=== PATIENT | male | born 1940 | race Caucasian/White ===

== ENCOUNTER 2017-03-19 12:37 | Inpatient (IN) | payer MEDICARE, OTHER ==
--- NOTE | 2017-03-19 13:17 | ER Document Report ---
ED General - General Chief Complaint: Hip Injury Stated Complaint: HIP INJURY Time Seen by Provider: 03/19/17 12:41 Notes: Patient presents with left hip pain worse with movement unable to bear weight onset at 4 AM when he fell from standing. Patient has Parkinson's and neuropathy and has trouble getting around. No numbness or tingling or foot pain. No ankle or knee pain. TRAVEL OUTSIDE OF THE [place] IN LAST 30 DAYS: No - Related Data Allergies/Adverse Reactions: Penicillins Allergy (Verified 03/19/17 13:12) Home Medications: Current Home Medications Amantadine HCl [Amantadine] 100 mg PO BID 03/19/17 [History] Amantadine HCl [Amantadine] 100 mg PO Q6 03/19/17 [History] Carbidopa/Levodopa [Rytary ER 61.25 mg-245 mg Cap] 3 tab PO Q8 03/19/17 [History ] Carbidopa/Levodopa [Rytary ER 61.25 mg-245 mg Cap] 245 mg PO TID 03/19/17 [ History] Chlorthalidone [Chlorthalidone 25 mg Tablet] 25 mg PO Q8 03/19/17 [History] Chlorthalidone [Chlorthalidone] 25 mg PO DAILY 03/19/17 [History] Clonazepam [Klonopin] 0.5 mg PO QHS 03/19/17 [History] Felodipine [Felodipine ER] 5 mg PO DAILY 03/19/17 [History] Felodipine [Felodipine ER] 5 mg PO DAILY 03/19/17 [History] Fenofibrate 54 mg PO DAILY 03/19/17 [History] Fenofibrate Nanocrystallized [Tricor] 54 mg PO DAILY 03/19/17 [History] Metformin HCl [Metformin HCl ER] 1,000 mg PO DAILY 03/19/17 [History] Metformin HCl [Metformin HCl ER] 500 mg PO BID 03/19/17 [History] Metoprolol Tartrate [Lopressor 25 mg Tablet] 25 mg PO Q12 03/19/17 [History] Metoprolol Tartrate [Metoprolol Tartrate] 50 mg PO BID 03/19/17 [History] Naproxen 500 mg PO DAILY 03/19/17 [History] Naproxen [Naprosyn] 500 mg PO BID 03/19/17 [History] Pravastatin Sodium [Pravachol] 10 mg PO QHS 03/19/17 [History] Pravastatin Sodium [Pravastatin Sodium] 10 mg PO QHS 03/19/17 [History] Rotigotine [Neupro] 4 mg PO DAILY 03/19/17 [History] Rotigotine [Neupro] 4 mg TD DAILY 03/19/17 [History] Telmisartan [Micardis 80 mg Tablet] 80 mg PO DAILY 03/19/17 [History] Telmisartan [Micardis] 80 mg PO DAILY 03/19/17 [History] Ubidecarenone [Co Q-10] 200 mg PO DAILY 03/19/17 [History] Zolpidem Tartrate 5 mg PO QHS PRN 03/19/17 [History] Past Medical History - Social History Smoking Status: Never Smoker Frequency of alcohol use: None Drug Abuse: None Family History: None Patient has suicidal ideation: No Patient has homicidal ideation: No - Past Medical History Cardiac Medical History: Reports: Hx Hypercholesterolemia, Hx Hypertension Endocrine Medical History: Reports: Hx Diabetes Mellitus Type 2 Renal/ Medical History: Denies: Hx Peritoneal Dialysis Review of Systems - Review of Systems Notes: REVIEW OF SYSTEMS GEN: Denies fever, chills, weight loss ENT: Denies sore throat, nasal discharge, ear pain EYES: Denies blurry vision, eye pain, discharge CV: Denies chest pain, palpitations, edema RESP: Denies cough, shortness of breath, wheezing GI: Denies abdominal pain, nausea, vomiting, diarrhea MSK: D left hip pain, SKIN: Denies rash, skin lesions LYMPH: Denies swollen glands/lymph nodes NEURO: Chronic tremor and gait instability PSYCH: Denies depression, suicidal or homicidal ideation PHYSICAL EXAMINATION General: No acute distress, well-nourished Head: Atraumatic, normocephalic ENT: Mouth normal, oropharynx moist, no exudates or tonsillar enlargement Eyes: Conjunctiva normal, pupils equal, lids normal Neck: No JVD, supple, no guarding CVS: Normal rate, regular rhythm, no murmurs Resp: No resp distress, equal and normal breath sounds bilaterally GI: Nondistended, soft, no tenderness to palpation, no rebound or guarding Ext: Pain and tenderness in the left groin and lateral hip, slightly shortened left hip with external rotation. Good motion in other joints no tenderness of the ankle or knee. Back: No CVA or midline TTP Skin: No rash, warm Lymphatic: No lymphadeopathy noted Neuro: Awake, alert. Face symmetric. Baseline tremor and stutter. Normal sensation left foot. GCS 15. Physical Exam - Vital signs Vitals: Temp Pulse Resp BP Pulse Ox 97.9 F 78 16 142/66 H 99 03/19/17 12:43 03/19/17 12:43 03/19/17 12:43 03/19/17 12:43 03/19/17 12:43 Course - Re-evaluation Re-evalutation: 03/19/17 13:16 Parkinson's patient with multiple medical problems presents with mechanical fall and left hip deformity. Neurovascularly intact. Hip and pelvis x-ray show a displaced femoral neck fracture. Ordered laboratory testing EKG and chest x-ray for preoperative workup. Consulted with Dr. Osman who will consult on the patient and operate. Admitted to Dr. Viramontes who accepted. 03/19/17 16:28 Preop workup is essentially normal. Anemia noted. 03/19/17 16:28 - Vital Signs Vital signs: Temp Pulse Resp BP Pulse Ox 97.9 F 78 24 H 154/62 H 97 03/19/17 12:43 03/19/17 12:43 03/19/17 16:01 03/19/17 16:01 03/19/17 16:01 - Laboratory Result Diagrams: 03/19/17 12:56 Laboratory results interpreted by me: 03/19/17 03/19/17 12:56 13:40 WBC 13.8 H RBC 2.71 L Hgb 8.4 L Hct 25.2 L Seg Neutrophils % 88.1 H Lymphocytes % 5.8 L Absolute Neutrophils 12.1 H Crossmatch See Detail - Diagnostic Test Radiology reviewed: Image reviewed, Reports reviewed Discharge - Discharge Clinical Impression: Fracture of hip, left, closed Qualifiers: Encounter type: initial encounter Qualified Code(s): S72.002A - Fracture of unspecified part of neck of left femur, initial encounter for closed fracture Condition: Good Disposition: ADMITTED INPATIENT Admitting Provider: Hospitalist Unit Admitted: Medical Floor
[2017-03-19 13:28] LABS: ABSOLUTE BASOPHILS # (AUTO) 0.1 10^3/uL (0.0-0.2); ABSOLUTE EOSINOPHILS # (AUTO) 0.1 10^3/uL (0.0-0.6); ABSOLUTE LYMPHOCYTES (AUTO) 0.8 10^3/uL (0.5-4.7); ABSOLUTE MONOCYTES (AUTO) 0.7 10^3/uL (0.1-1.4); ABSOLUTE NEUT (AUTO) 12.1 10^3/uL (1.7-8.2); BASOPHILS % (AUTO) 0.5 % (0-2); EOSINOPHILS % (AUTO) 0.4 % (0-6); HEMATOCRIT 25.2 % (37.9-51.0); HEMOGLOBIN 8.4 g/dL (13.5-17.0); LYMPHOCYTES % (AUTO) 5.8 % (13-45); MEAN CORPUSCULAR HEMOGLOBIN 31.2 pg (27.0-33.4); MEAN CORPUSCULAR HGB CONC 33.5 g/dL (32.0-36.0); MEAN CORPUSCULAR VOLUME 93 fl (80-97); MONOCYTES % (AUTO) 5.2 % (3-13); RED BLOOD COUNT 2.71 10^6/uL (4.35-5.55); SEGMENTED NEUTROPHILS % (AUTO) 88.1 % (42-78); WHITE BLOOD COUNT 13.8 10^3/uL (4.0-10.5)
--- NOTE | 2017-03-19 13:52 | RADIOLOGY REPORT (SQ) ---
EXAM DESCRIPTION: CHEST SINGLE VIEW COMPLETED DATE/TIME: 03/19/2017 1:34 pm REASON FOR STUDY: hi pfx COMPARISON: None. EXAM PARAMETERS: NUMBER OF VIEWS: One view. TECHNIQUE: Single frontal radiographic view of the chest acquired. RADIATION DOSE: NA LIMITATIONS: None. FINDINGS: LUNGS AND PLEURA: No opacities, masses or pneumothorax. No pleural effusion. MEDIASTINUM AND HILAR STRUCTURES: No masses. Contour normal. HEART AND VASCULAR STRUCTURES: Heart normal in size. Normal vasculature. BONES: No acute findings. HARDWARE: None in the chest. OTHER: No other significant finding. IMPRESSION: NO ACUTE RADIOGRAPHIC FINDING IN THE CHEST. TECHNICAL DOCUMENTATION: JOB ID: [id number] [employer]- All Rights Reserved
--- NOTE | 2017-03-19 13:52 | RADIOLOGY REPORT (SQ) ---
EXAM DESCRIPTION: PELVIS AP COMPLETED DATE/TIME: 03/19/2017 1:34 pm REASON FOR STUDY: BED 1 FALL +DEFORMITY TENDERNESS COMPARISON: None. NUMBER OF VIEWS: One view TECHNIQUE: AP Pelvis LIMITATIONS: None. FINDINGS: MINERALIZATION: Normal. HIPS: Fracture of the left femoral neck. Severe degenerative changes in the left hip with joint spac e loss, sclerosis, subchondral cysts, and osteophytes. Degenerative changes in the right hip, althou gh less severe. Limited visualization of the right femoral neck. PELVIS AND SACRUM: No acute fracture or dislocation. No worrisome bone lesions. PUBIS AND ISCHIUM: No acute fracture. LOWER LUMBAR SPINE: No significant findings as visualized. SOFT TISSUES: No findings. OTHER: No other significant finding. IMPRESSION: DEGENERATIVE CHANGES IN BOTH HIPS, WORSE ON THE LEFT. FRACTURE OF THE LEFT FEMORAL NECK . TECHNICAL DOCUMENTATION: JOB ID: [id number] [employer]- All Rights Reserved
--- NOTE | 2017-03-19 13:53 | RADIOLOGY REPORT (SQ) ---
EXAM DESCRIPTION: FEMUR LEFT COMPLETED DATE/TIME: 03/19/2017 1:34 pm REASON FOR STUDY: hi pfx COMPARISON: None. NUMBER OF VIEWS: Two views. TECHNIQUE: Two radiographic images acquired of the left femur to include hip and knee in at least on e projection. LIMITATIONS: None. FINDINGS: MINERALIZATION: Normal. BONES: Fracture of the femoral neck. Otherwise intact. Severe degenerative changes in the hip. SOFT TISSUES: No obvious swelling or foreign body. OTHER: No other significant finding. IMPRESSION: FRACTURE OF THE FEMORAL NECK. SEVERE DEGENERATIVE CHANGES IN THE HIP. TECHNICAL DOCUMENTATION: JOB ID: [id number] [employer]- All Rights Reserved
[2017-03-19] MEDS ORDERED: ACETAMINOPHEN 325 MG TABLET PO PRN (14:34)
[2017-03-19] MEDS ORDERED: ONDANSETRON HCL INJ/PF 4 MG/2 ML SDV IV PRN (14:34)
[2017-03-19] MEDS ORDERED: DEXTROSE 50%-WATER 25 GM/50 ML DISP.SYRIN IV PRN ×2 (14:34)
[2017-03-19] MEDS ORDERED: ONDANSETRON 4 MG TAB.RAPDIS PO PRN (14:34)
[2017-03-19] MEDS ORDERED: DEXTROSE 40% GEL 15 GM TUBE PO PRN ×3 (14:34→14:45)
[2017-03-19] MEDS ORDERED: GLUCAGON,HUMAN RECOMB 1 MG INJ SUBCUT PRN (14:34)
[2017-03-19] MEDS ORDERED: MORPHINE SULFATE 10 MG/ML INJ IV PRN (14:45)
[2017-03-19] MEDS ORDERED: INSULIN LISPRO 100 UNIT/ML 3 ML VIAL SUBCUT PRN (14:45)
--- NOTE | 2017-03-19 14:47 | PDOC CONSULTATION ---
Consultation Consult Date: 03/19/17 Consult reason:: Left hip fracture History of Present Illness Admission Date/PCP: 03/19/17 14:00 History of Present Illness: LAURI MCDANIEL is a 76 year old male history of Parkinson's disease who slipped and fell sustaining a left hip injury today. He was unable to weight- bear. Is brought to the emergency room. A displaced left femoral neck fracture was identified. Orthopedics is consulted for fracture management. Past Medical History Cardiac Medical History: Reports: Hyperlipidema, Hypertension Endocrine Medical History: Reports: Diabetes Mellitus Type 2 Hematology: Reports: Anemia Social History Information Source: Patient, [facility] Records Lives with: Family Smoking Status: Never Smoker Family History Parental Family History Reviewed: No Children Family History Reviewed: No Sibling(s) Family History Reviewed.: No Medication/Allergy Home Medications: Amantadine HCl [Amantadine] 100 mg PO BID 03/19/17 Amantadine HCl [Amantadine] 100 mg PO Q6 03/19/17 Carbidopa/Levodopa [Rytary ER 61.25 mg-245 mg Cap] 3 tab PO Q8 03/19/17 Carbidopa/Levodopa [Rytary ER 61.25 mg-245 mg Cap] 245 mg PO TID 03/19/17 Chlorthalidone [Chlorthalidone 25 mg Tablet] 25 mg PO Q8 03/19/17 Chlorthalidone [Chlorthalidone] 25 mg PO DAILY 03/19/17 Clonazepam [Klonopin] 0.5 mg PO QHS 03/19/17 Felodipine [Felodipine ER] 5 mg PO DAILY 03/19/17 Felodipine [Felodipine ER] 5 mg PO DAILY 03/19/17 Fenofibrate 54 mg PO DAILY 03/19/17 Fenofibrate Nanocrystallized [Tricor] 54 mg PO DAILY 03/19/17 Metformin HCl [Metformin HCl ER] 1,000 mg PO DAILY 03/19/17 Metformin HCl [Metformin HCl ER] 500 mg PO BID 03/19/17 Metoprolol Tartrate [Lopressor 25 mg Tablet] 25 mg PO Q12 03/19/17 Metoprolol Tartrate [Metoprolol Tartrate] 50 mg PO BID 03/19/17 Naproxen 500 mg PO DAILY 03/19/17 Naproxen [Naprosyn] 500 mg PO BID 03/19/17 Pravastatin Sodium [Pravachol] 10 mg PO QHS 03/19/17 Pravastatin Sodium [Pravastatin Sodium] 10 mg PO QHS 03/19/17 Rotigotine [Neupro] 4 mg PO DAILY 03/19/17 Rotigotine [Neupro] 4 mg TD DAILY 03/19/17 Telmisartan [Micardis 80 mg Tablet] 80 mg PO DAILY 03/19/17 Telmisartan [Micardis] 80 mg PO DAILY 03/19/17 Ubidecarenone [Co Q-10] 200 mg PO DAILY 03/19/17 Zolpidem Tartrate 5 mg PO QHS PRN 03/19/17 Allergies/Adverse Reactions: Penicillins Allergy (Verified 03/19/17 13:12) Review of Systems ROS unobtainable: Due to mental status Physical Exam Vital Signs: Temp Pulse Resp BP Pulse Ox 36.6 C 78 16 142/66 H 99 03/19/17 12:43 03/19/17 12:43 03/19/17 12:43 03/19/17 12:43 03/19/17 12:43 General appearance: PRESENT: mild distress, thin Head exam: PRESENT: normocephalic Respiratory exam: PRESENT: unlabored Cardiovascular exam: PRESENT: RRR Pulses: PRESENT: +1 pedal pulses bilateral Vascular exam: PRESENT: normal capillary refill GI/Abdominal exam: PRESENT: soft Rectal exam: PRESENT: deferred Extremities exam: PRESENT: other - Left lower extremity is shortened and externally rotated. His pain associate with passive range of motion. Distal neurovascular examination is intact. Neurological exam: PRESENT: other - Stigmata of Parkinson's disease Psychiatric exam: PRESENT: appropriate affect, normal mood. ABSENT: homicidal ideation, suicidal ideation Skin exam: PRESENT: dry, intact, warm. ABSENT: cyanosis, rash Results Impressions: Pelvis X-Ray 03/19/17 00:00 IMPRESSION: DEGENERATIVE CHANGES IN BOTH HIPS, WORSE ON THE LEFT. FRACTURE OF THE LEFT FEMORAL NECK. Chest X-Ray 03/19/17 12:42 IMPRESSION: NO ACUTE RADIOGRAPHIC FINDING IN THE CHEST. Femur X-Ray 03/19/17 12:42 IMPRESSION: FRACTURE OF THE FEMORAL NECK. SEVERE DEGENERATIVE CHANGES IN THE HIP. Status: Imported from PACS Assessment & Plan - Diagnosis (1) Fracture of hip, left, closed Qualifiers: Encounter type: initial encounter Qualified Code(s): S72.002A - Fracture of unspecified part of neck of left femur, initial encounter for closed fracture Is this a current diagnosis for this admission?: Yes Plan: 76-year-old white male with Parkinson's disease and a displaced left femoral neck fracture and pre-existing severe osteoarthritis. With this constellation of clinical findings my recommendation is to proceed with a total hip arthroplasty as opposed to hemiarthroplasty. The patient's Parkinson's disease places him at greater risk for dislocation. In addition to dislocation we discussed infection, leg length inequality, neurovascular injury, and blood clot as potential complications. - Time Time Spent: 50 to 70 Minutes Anticipated discharge: Home with Homehealth Within: Other
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
[2017-03-19] MEDS ORDERED: NORMAL SALINE 250 ML IV PRN ×2 (15:26)
[2017-03-19] MEDS: NORMAL SALINE 1000 ML 1,000 ML IV PRN (15:29)
[2017-03-19] MEDS: OXYCODONE-ACETAMINOPHEN 5-325 MG TABLET PO PRN ×2 (15:53→22:54)
--- NOTE | 2017-03-19 20:50 | EKG REPORT ---
SEVERITY:- BORDERLINE ECG - SINUS RHYTHM BORDERLINE PROLONGED QT INTERVAL : Confirmed by: Pooja Navarrete 19-Mar-2017 20:49:00
[2017-03-19] MEDS: FAMOTIDINE 20 MG TABLET PO SCH (22:53)
[2017-03-20] MEDS ORDERED: VANCOMYCIN HCL 1,000 MG in DEXTROSE 5%-WATER 250 ML IV PRN (05:00)
[2017-03-20] MEDS ORDERED: TRANEXAMIC ACID INJ/PF 1,000 MG/10 ML SDV IV PRN (05:00)
[2017-03-20] MEDS: NORMAL SALINE 1000 ML 1,000 ML IV PRN ×2 (06:40→15:32)
[2017-03-20] MEDS: OXYCODONE-ACETAMINOPHEN 5-325 MG TABLET PO PRN (06:41)
[2017-03-20 07:27] LABS: HEMATOCRIT 30.3 % (37.9-51.0); HEMOGLOBIN 10.1 g/dL (13.5-17.0); MEAN CORPUSCULAR HEMOGLOBIN 30.1 pg (27.0-33.4); MEAN CORPUSCULAR HGB CONC 33.4 g/dL (32.0-36.0); MEAN CORPUSCULAR VOLUME 90 fl (80-97); RED BLOOD COUNT 3.37 10^6/uL (4.35-5.55); RED CELL DISTRIBUTION WIDTH 15.1 % (11.5-14.0); WHITE BLOOD COUNT 12.4 10^3/uL (4.0-10.5)
[2017-03-20] MEDS ORDERED: PHENYLEPHRINE HCL INJ/PF 10 MG/1 ML SDV ONE (07:51)
[2017-03-20 07:56] LABS: ANION GAP 14 (5-19); BLOOD UREA NITROGEN 26 mg/dL (7-20); CALCIUM 9.3 mg/dL (8.4-10.2); CARBON DIOXIDE 22 mmol/L (22-30); CHLORIDE 105 mmol/L (98-107); CREATININE RESULT 1.27 mg/dL (0.52-1.25); GLUCOSE 130 mg/dL (75-110)
[2017-03-20] MEDS ORDERED: THROMBIN (BOVINE) TOPICAL 20000 UNIT VIAL ONE (08:01)
[2017-03-20] MEDS ORDERED: THROMBIN (BOVINE) 5000 UNIT EPITAXIS KIT ONE (08:01)
[2017-03-20] MEDS ORDERED: BUPIVACAINE INJ/PF LIPOSOME/PF 266 MG/20 ML SDV ONE (08:01)
[2017-03-20] MEDS ORDERED: LIDOCAINE 2% INJ-PF (20 MG/ML) 10 ML AMPUL ONE (08:08)
[2017-03-20] MEDS ORDERED: MIDAZOLAM 2 MG/2 ML INJ ONE (08:08)
[2017-03-20] MEDS ORDERED: PROPOFOL INJ 200 MG/20 ML VIAL IV ONE (08:08)
[2017-03-20] MEDS ORDERED: KETAMINE HCL INJ 500 MG/10 ML VIAL ONE (08:08)
[2017-03-20] MEDS ORDERED: HYDROMORPHONE HCL INJ/PF 2 MG/ML AMPULE ONE (08:09)
[2017-03-20] MEDS ORDERED: ACETAMINOPHEN 100 ML IV ONE ×2 (08:09→15:45)
[2017-03-20] MEDS ORDERED: TRANEXAMIC ACID INJ/PF 1,000 MG/10 ML SDV IV ONE ×3 (08:25→11:00)
[2017-03-20] MEDS ORDERED: FENTANYL CITRATE INJ/PF 100 MCG/2 ML AMPUL IV PRN ×3 (09:18)
[2017-03-20] MEDS ORDERED: ONDANSETRON HCL INJ/PF 4 MG/2 ML SDV IV PRN ×3 (09:18→21:13)
[2017-03-20] MEDS ORDERED: MEPERIDINE HCL/PF INJ 25 MG/1 ML DISP.SYRIN IV PRN (09:18)
[2017-03-20] MEDS ORDERED: DIPHENHYDRAMINE HCL 50 MG/ML VIAL IV PRN ×3 (09:18→21:06)
[2017-03-20] MEDS ORDERED: PROMETHAZINE HCL INJ 25 MG/1 ML VIAL IV PRN ×2 (09:18)
[2017-03-20] MEDS ORDERED: MORPHINE SULFATE 10 MG/ML INJ IV PRN ×6 (09:18→21:11)
[2017-03-20] MEDS ORDERED: OXYCODONE-ACETAMINOPHEN 5-325 MG TABLET PO PRN ×3 (09:18→21:15)
[2017-03-20] MEDS ORDERED: ZOLPIDEM TARTRATE 5 MG TABLET PO PRN ×3 (09:41→21:19)
--- NOTE | 2017-03-20 09:41 | Operative Report ---
Operative Report DATE OF SURGERY: 03/20/17 PREOPERATIVE DIAGNOSIS: Left femoral neck fracture with severe degenerative arthritis OPERATION: Left hip arthroplasty SURGEON: MATT TELLEZ ANESTHESIA: Spinal TISSUE REMOVED OR ALTERED: Femoral head to pathology ESTIMATED BLOOD LOSS: 100 PROCEDURE: Implants used: Femur: Weldon Accolade 2 stem size 7 Acetabular shell: 60 mm acetabular shell Liner: 36 mm cross-link polyethylene liner Head: 86 mm chrome cobalt head -5 extension The patient is placed in a right lateral decubitus position on the operating table. The left lower extremity and hindquarter is prepped and draped in a sterile fashion. A curvilinear incision was made over the greater trochanter a posterior approach the hip was taken. The femoral head is is removed with a corkscrew.. Attention was next turned to the acetabulum. Soft tissues cleared off the acetabulum using electrocautery. The acetabulum was then prepared using a series of hemispherical reamers until a 59 millimeters reamer is seated. Subsequently a 60 millimeters Mary titanium hemispherical shell is impacted into position and secured with one screw. A standard flat 36 millimeters cross- link liner is impacted into the shell. Attention was next turned to the femur. Access is gained to the femoral canal using a box osteotome to the piriformis fossa. The femur is then prepared using a series of broaches until a number 7 broach is seated. A trial reduction was now performed using a 36 millimeters head with -5 neck. Preoperative leg length was recreated and is excellent anterior posterior stability. A decision was made to proceed with the above construct. All trial implants were removed. The wound is irrigated with pulsed lavage. A number 7 stem is impacted into the femoral canal. A trial reduction was again performed with a 36 mm head and a -5 neck. Findings as previously. The hip was dislocated one last time and the final chrome-cobalt head is impacted onto the trunnion. The hip was reduced. Wound is copiously irrigated with pulsed lavage. Sent closed in layers using interrupted Vicryl followed by uma. A sterile dressing is applied and the patient's returned to recovery room in satisfactory patient.
[2017-03-20] MEDS ORDERED: ONDANSETRON 4 MG TAB.RAPDIS PO PRN ×2 (09:43→21:14)
[2017-03-20] MEDS ORDERED: MAG HYDROX/AL HYDROX/SIMETH SUSP 30 ML UDCUP PO PRN ×2 (09:43→21:08)
[2017-03-20] MEDS ORDERED: OXYCODONE HCL IR 5 MG TABLET PO PRN (09:43)
[2017-03-20] MEDS ORDERED: MORPHINE SULFATE 10 MG/ML INJ IM PRN (09:43)
[2017-03-20] MEDS ORDERED: RINGERS SOLUTION,LACTATED 1,000 ML IV PRN ×2 (09:43→21:18)
[2017-03-20] MEDS ORDERED: ACETAMINOPHEN 325 MG TABLET PO PRN ×2 (09:43→21:02)
[2017-03-20] MEDS ORDERED: (PENDING PHARMACY ID) (Metformin Hcl [Metformin Hcl Er] 500 MG) PO SCH (10:00)
[2017-03-20] MEDS ORDERED: FENOFIBRATE NANOCRYSTALLIZED 48 MG TABLET PO SCH (10:00)
[2017-03-20] MEDS ORDERED: ROTIGOTINE 4 MG TD SCH (10:00)
[2017-03-20] MEDS ORDERED: (PENDING PHARMACY ID) (Ubidecarenone [Co Q-10] 200 MG) PO SCH (10:00)
[2017-03-20] MEDS ORDERED: CARBIDOPA PO SCH ×3 (10:00→18:00)
[2017-03-20] MEDS ORDERED: AMANTADINE HCL 100 MG CAPSULE PO SCH (10:00)
[2017-03-20] MEDS ORDERED: (PENDING PHARMACY ID) (Metformin Hcl [Metformin Hcl Er] 1,000 MG) PO SCH (10:00)
[2017-03-20] MEDS ORDERED: LEVODOPA PO SCH ×3 (10:00→18:00)
[2017-03-20] MEDS ORDERED: (PENDING PHARMACY ID) (Fenofibrate [Fenofibrate] 54 MG) PO SCH (10:00)
[2017-03-20] MEDS ORDERED: ROTIGOTINE 4 MG PO SCH (10:00)
[2017-03-20] MEDS ORDERED: FELODIPINE 5 MG PO SCH ×2 (10:00)
[2017-03-20] MEDS ORDERED: CHLORTHALIDONE 25 MG TABLET PO SCH ×2 (10:00→14:00)
[2017-03-20] MEDS ORDERED: (PENDING PHARMACY ID) (Telmisartan [Micardis] 80 MG) PO SCH (10:00)
[2017-03-20] MEDS ORDERED: METOPROLOL TARTRATE 25 MG TABLET PO SCH ×2 (10:00→22:00)
[2017-03-20] MEDS ORDERED: (PENDING PHARMACY ID) (Telmisartan [Micardis 80 Mg Tablet] 80 MG) PO SCH (10:00)
--- NOTE | 2017-03-20 10:38 | RADIOLOGY REPORT (SQ) ---
EXAM DESCRIPTION: PELVIS AP COMPLETED DATE/TIME: 03/20/2017 10:23 am REASON FOR STUDY: Post Op Long Cassette in PACU COMPARISON: None. NUMBER OF VIEWS: One view TECHNIQUE: AP Pelvis LIMITATIONS: None. FINDINGS: Postoperative image of the pelvis and proximal femurs shows a left hip arthroplasty in goo d position. IMPRESSION: Left hip arthroplasty. TECHNICAL DOCUMENTATION: JOB ID: [id number] [employer]- All Rights Reserved
[2017-03-20] MEDS ORDERED: PRENATAL VITAMIN W DHA CAPSULE PO ONE (11:30)
[2017-03-20] MEDS ORDERED: METOPROLOL TARTRATE 25 MG TABLET PO ONE (11:30)
[2017-03-20] MEDS: FAMOTIDINE 20 MG TABLET PO SCH ×2 (11:46→22:12)
[2017-03-20] MEDS ORDERED: OXYCODONE HCL SR 10 MG TABLET PO ONE (12:00)
[2017-03-20] MEDS ORDERED: (PENDING PHARMACY ID) (Amantadine Hcl [Amantadine] 100 MG) PO SCH (12:00)
[2017-03-20] MEDS ORDERED: SENNOSIDES/DOCUSATE 8.6-50 MG 1 EACH TABLET PO ONE (12:00)
[2017-03-20] MEDS: AMANTADINE HCL 100 MG CAPSULE PO SCH ×2 (12:38→17:22)
--- NOTE | 2017-03-20 13:47 | PDOC PROGRESS REPORT ---
Subjective Progress Note for:: 03/20/17 Subjective:: Patient had his hip surgery this morning and denies any pain or complaints at this time. Reason For Visit: HIP FRACTURE Physical Exam Vital Signs: Temp Pulse Resp BP Pulse Ox 98.2 F 80 18 128/89 H 91 L 03/20/17 12:09 03/20/17 12:09 03/20/17 12:09 03/20/17 12:09 03/20/17 12:09 Intake & Output 03/19/17 03/20/17 03/21/17 06:59 06:59 06:59 Intake Total 1000 1550 Output Total 275 1000 Balance 725 550 Weight 70.3 kg General appearance: PRESENT: no acute distress Eye exam: PRESENT: conjunctiva pink. ABSENT: scleral icterus Mouth exam: PRESENT: moist, tongue midline Neck exam: ABSENT: JVD Respiratory exam: PRESENT: clear to auscultation bang. ABSENT: rales, rhonchi, wheezes Cardiovascular exam: PRESENT: RRR. ABSENT: diastolic murmur, rubs, systolic murmur GI/Abdominal exam: PRESENT: normal bowel sounds, soft. ABSENT: distended, guarding, mass, organolmegaly, rebound, tenderness Extremities exam: ABSENT: calf tenderness, clubbing, pedal edema Neurological exam: PRESENT: alert, awake, oriented to person, oriented to place , oriented to time, oriented to situation, CN II-XII grossly intact, other - Resting tremor consistent with Parkinson's disease. ABSENT: motor sensory deficit Psychiatric exam: PRESENT: appropriate affect Skin exam: PRESENT: dry, intact, warm. ABSENT: cyanosis, rash Results Laboratory Results: 03/20/17 06:35 03/20/17 06:35 03/20/17 03/20/17 06:35 06:35 WBC 12.4 H RBC 3.37 L Hgb 10.1 L Hct 30.3 L MCV 90 MCH 30.1 MCHC 33.4 RDW 15.1 H Plt Count 293 Sodium 141.0 Potassium 4.0 Chloride 105 Carbon Dioxide 22 Anion Gap 14 BUN 26 H Creatinine 1.27 H Est GFR ( Amer) > 60 Est GFR (Non-Af Amer) 55 L Glucose 130 H Calcium 9.3 Impressions: Chest X-Ray 03/19/17 12:42 IMPRESSION: NO ACUTE RADIOGRAPHIC FINDING IN THE CHEST. Femur X-Ray 03/19/17 12:42 IMPRESSION: FRACTURE OF THE FEMORAL NECK. SEVERE DEGENERATIVE CHANGES IN THE HIP. Pelvis X-Ray 03/20/17 09:45 IMPRESSION: Left hip arthroplasty. Assessment & Plan - Diagnosis (1) Fracture of hip, left, closed Qualifiers: Encounter type: initial encounter Qualified Code(s): S72.002A - Fracture of unspecified part of neck of left femur, initial encounter for closed fracture Is this a current diagnosis for this admission?: Yes Plan: patient had hip surgery this morning is doing well postoperatively. He reports he is having no pain at this time. (2) Parkinsons disease Is this a current diagnosis for this admission?: Yes Plan: According to the the patient has started to have some confusion associated with Parkinson's disease. Will continue with his outpatient regimen. (3) Hypertension Is this a current diagnosis for this admission?: Yes (4) Hyperlipidemia Is this a current diagnosis for this admission?: Yes (5) Diabetes mellitus Is this a current diagnosis for this admission?: Yes Plan: We will cover with sliding scale insulin. (6) Peripheral neuropathy Is this a current diagnosis for this admission?: Yes (7) Right carotid bruit Is this a current diagnosis for this admission?: Yes Plan: Patient has no history previously of carotid bruit. Will need an outpatient workup for this carotid bruit. (8) DNR (do not resuscitate) Is this a current diagnosis for this admission?: Yes Plan: I discussed this with the patient and the and daughter who were at the bedside. And they all are in agreement with a DO NOT RESUSCITATE. - Time Time Spent with patient: 25-34 minutes - Inpatient Certification Medical Necessity: Need Close Monitoring Due to Risk of Patient Decompensation
[2017-03-20] MEDS ORDERED: ACETAMINOPHEN 100 ML IV SCH (14:00)
[2017-03-20] MEDS ORDERED: METFORMIN HCL 500 MG TABLET PO SCH (16:00)
[2017-03-20] MEDS ORDERED: SENNOSIDES/DOCUSATE 8.6-50 MG 1 EACH TABLET PO SCH (18:00)
[2017-03-20] MEDS ORDERED: ROTIGOTINE 4 MG TOP SCH (18:00)
[2017-03-20] MEDS ORDERED: DEXTROSE 50%-WATER 25 GM/50 ML DISP.SYRIN IV PRN ×2 (21:04→21:05)
[2017-03-20] MEDS ORDERED: DEXTROSE 40% GEL 15 GM TUBE PO PRN ×2 (21:05→21:06)
[2017-03-20] MEDS ORDERED: GLUCAGON,HUMAN RECOMB 1 MG INJ SUBCUT PRN (21:07)
[2017-03-20] MEDS ORDERED: INSULIN LISPRO 100 UNIT/ML 3 ML VIAL SUBCUT PRN (21:07)
[2017-03-20] MEDS ORDERED: NORMAL SALINE 1000 ML 1,000 ML IV PRN (21:12)
[2017-03-20] MEDS ORDERED: (PENDING PHARMACY ID) (Pravastatin Sodium [Pravastatin Sodium] 10 MG) PO SCH (22:00)
[2017-03-20] MEDS ORDERED: OXYCODONE HCL SR 10 MG TABLET PO SCH (22:00)
[2017-03-20] MEDS ORDERED: (PENDING PHARMACY ID) (Clonazepam [Klonopin] 0.5 MG) PO SCH (22:00)
[2017-03-20] MEDS ORDERED: CLONAZEPAM 1 MG TABLET PO SCH (22:00)
[2017-03-20] MEDS ORDERED: ATORVASTATIN CALCIUM 10 MG TABLET PO SCH (22:00)
[2017-03-20] MEDS ORDERED: VANCOMYCIN HCL 1,000 MG in DEXTROSE 5%-WATER 250 ML IV ONE ×4 (22:00)
[2017-03-20] MEDS: OXYCODONE HCL SR 10 MG TABLET PO SCH (22:07)
[2017-03-20] MEDS: METOPROLOL TARTRATE 25 MG TABLET PO SCH (22:10)
[2017-03-20] MEDS: ATORVASTATIN CALCIUM 10 MG TABLET PO SCH (22:11)
[2017-03-20] MEDS: CHLORTHALIDONE 25 MG TABLET PO SCH (22:11)
[2017-03-20] MEDS: CLONAZEPAM 1 MG TABLET PO SCH (22:12)
[2017-03-20] MEDS: METFORMIN HCL 500 MG TABLET PO SCH (22:14)
[2017-03-21] MEDS: ACETAMINOPHEN 100 ML IV SCH ×3 (00:16→22:05)
[2017-03-21] MEDS: AMANTADINE HCL 100 MG CAPSULE PO SCH ×5 (00:16→23:06)
[2017-03-21] MEDS: MORPHINE SULFATE 10 MG/ML INJ IV PRN ×3 (03:17→08:47)
[2017-03-21] MEDS ORDERED: LANSOPRAZOLE 30 MG TAB.RAP.DR PO SCH (06:00)
[2017-03-21] MEDS: LANSOPRAZOLE 30 MG TAB.RAP.DR PO SCH (06:00)
[2017-03-21] MEDS: CHLORTHALIDONE 25 MG TABLET PO SCH ×3 (06:00→22:04)
[2017-03-21] MEDS ORDERED: BISACODYL 10 MG SUPP.RECT PR ONE ×2 (07:00→15:00)
[2017-03-21] MEDS: METFORMIN HCL 500 MG TABLET PO SCH ×4 (07:36→22:05)
[2017-03-21] MEDS: OXYCODONE HCL IR 5 MG TABLET PO PRN ×2 (08:46→16:54)
[2017-03-21] MEDS ORDERED: ASPIRIN 81 MG TABLET, ENT COATED PO SCH (10:00)
[2017-03-21] MEDS ORDERED: AMLODIPINE BESYLATE 5 MG TABLET PO SCH (10:00)
[2017-03-21] MEDS ORDERED: PRENATAL VITAMIN W DHA CAPSULE PO SCH (10:00)
[2017-03-21] MEDS ORDERED: FENOFIBRATE NANOCRYSTALLIZED 48 MG TABLET PO SCH (10:00)
[2017-03-21] MEDS ORDERED: LOSARTAN POTASSIUM 50 MG TABLET PO SCH (10:00)
[2017-03-21] MEDS: MORPHINE SULFATE 10 MG/ML INJ IM PRN ×2 (10:22→14:19)
[2017-03-21] MEDS: PRENATAL VITAMIN W DHA CAPSULE PO SCH (11:11)
[2017-03-21] MEDS: OXYCODONE HCL SR 10 MG TABLET PO SCH ×2 (11:12→23:01)
[2017-03-21] MEDS: FENOFIBRATE NANOCRYSTALLIZED 48 MG TABLET PO SCH (11:12)
[2017-03-21] MEDS: METOPROLOL TARTRATE 25 MG TABLET PO SCH ×2 (11:13→22:05)
[2017-03-21] MEDS: ASPIRIN 81 MG TABLET, ENT COATED PO SCH (11:13)
[2017-03-21] MEDS: LOSARTAN POTASSIUM 50 MG TABLET PO SCH (11:14)
[2017-03-21] MEDS: AMLODIPINE BESYLATE 5 MG TABLET PO SCH (11:14)
[2017-03-21] MEDS: SENNOSIDES/DOCUSATE 8.6-50 MG 1 EACH TABLET PO SCH ×2 (11:14→18:13)
[2017-03-21] MEDS: FAMOTIDINE 20 MG TABLET PO SCH ×2 (11:15→22:04)
--- NOTE | 2017-03-21 12:50 | PDOC PROGRESS REPORT ---
Subjective Progress Note for:: 03/21/17 Subjective:: denies any pain or complaints at this time. Reason For Visit: HIP FRACTURE Physical Exam Vital Signs: Temp Pulse Resp BP Pulse Ox 98.2 F 78 18 119/92 H 95 03/21/17 08:06 03/21/17 08:06 03/21/17 08:06 03/21/17 08:06 03/21/17 08:06 Intake & Output 03/20/17 03/21/17 03/22/17 06:59 06:59 06:59 Intake Total 1000 1816 Output Total 275 1275 Balance 725 541 Weight 70.3 kg General appearance: PRESENT: no acute distress Eye exam: PRESENT: conjunctiva pink. ABSENT: scleral icterus Mouth exam: PRESENT: moist, tongue midline Neck exam: ABSENT: JVD Respiratory exam: PRESENT: clear to auscultation bang. ABSENT: rales, rhonchi, wheezes Cardiovascular exam: PRESENT: RRR. ABSENT: diastolic murmur, rubs, systolic murmur Pulses: PRESENT: normal dorsalis pedis pul GI/Abdominal exam: PRESENT: normal bowel sounds, soft. ABSENT: distended, guarding, mass, organolmegaly, rebound, tenderness Extremities exam: ABSENT: calf tenderness, clubbing, pedal edema Neurological exam: PRESENT: alert, awake, oriented to person, oriented to place , oriented to time, oriented to situation, CN II-XII grossly intact, other - Resting tremor. ABSENT: motor sensory deficit Psychiatric exam: PRESENT: appropriate affect Skin exam: PRESENT: dry, intact, warm. ABSENT: cyanosis, rash Results Laboratory Results: 03/20/17 06:35 03/20/17 06:35 Impressions: Chest X-Ray 03/19/17 12:42 IMPRESSION: NO ACUTE RADIOGRAPHIC FINDING IN THE CHEST. Femur X-Ray 03/19/17 12:42 IMPRESSION: FRACTURE OF THE FEMORAL NECK. SEVERE DEGENERATIVE CHANGES IN THE HIP. Pelvis X-Ray 03/20/17 09:45 IMPRESSION: Left hip arthroplasty. Assessment & Plan - Diagnosis (1) Fracture of hip, left, closed Qualifiers: Encounter type: initial encounter Qualified Code(s): S72.002A - Fracture of unspecified part of neck of left femur, initial encounter for closed fracture Is this a current diagnosis for this admission?: Yes Plan: patient had hip surgery this morning is doing well postoperatively. He reports he is having no pain at this time. (2) Parkinsons disease Is this a current diagnosis for this admission?: Yes Plan: According to the the patient has started to have some confusion associated with Parkinson's disease. Will continue with his outpatient regimen. (3) Hypertension Is this a current diagnosis for this admission?: Yes (4) Hyperlipidemia Is this a current diagnosis for this admission?: Yes (5) Diabetes mellitus Is this a current diagnosis for this admission?: Yes Plan: We will cover with sliding scale insulin. (6) Peripheral neuropathy Is this a current diagnosis for this admission?: Yes (7) Right carotid bruit Is this a current diagnosis for this admission?: Yes Plan: Patient has no history previously of carotid bruit. Will need an outpatient workup for this carotid bruit. (8) DNR (do not resuscitate) Is this a current diagnosis for this admission?: Yes Plan: Discussed with the family and they all are in agreement with a DO NOT RESUSCITATE. - Time Time Spent with patient: 25-34 minutes - Inpatient Certification Medical Necessity: Need Close Monitoring Due to Risk of Patient Decompensation
[2017-03-21] MEDS: ROTIGOTINE 4 MG TOP SCH (18:13)
[2017-03-21] MEDS: ATORVASTATIN CALCIUM 10 MG TABLET PO SCH (22:05)
[2017-03-21] MEDS: CLONAZEPAM 1 MG TABLET PO SCH (22:05)
[2017-03-22] MEDS: OXYCODONE HCL IR 5 MG TABLET PO PRN (00:50)
[2017-03-22 05:33] LABS: BLOOD UREA NITROGEN 45 mg/dL (7-20); CALCIUM 8.5 mg/dL (8.4-10.2); CHLORIDE 102 mmol/L (98-107); CREATININE RESULT 2.08 mg/dL (0.52-1.25); GLUCOSE 120 mg/dL (75-110); POTASSIUM 4.9 mmol/L (3.6-5.0); SODIUM 136.8 mmol/L (137-145)
[2017-03-22 05:45] LABS: ANION GAP 26 (5-19)
[2017-03-22 05:47] LABS: CARBON DIOXIDE 9 mmol/L (22-30)
[2017-03-22] MEDS ORDERED: NORMAL SALINE 1000 ML 1,000 ML IV ONE (06:05)
[2017-03-22] MEDS ORDERED: DEXTROSE 5%-1/2 NORMAL SALINE 1,000 ML IV ONE (06:06)
[2017-03-22] MEDS ORDERED: SODIUM BICARBONATE 8.4% INJ 50 MEQ/50 ML DISP.SYRIN ONE (06:07)
[2017-03-22] MEDS ORDERED: INSULIN LISPRO 100 UNIT/ML 3 ML VIAL ONE (06:30)
[2017-03-22] MEDS ORDERED: INSULIN REG, HUMAN 100 UNIT/ML 3 ML VIAL (PYX) ONE (06:30)
[2017-03-22 06:55] LABS: ARTERIAL BLOOD BASE EXCESS -7.4 mmol/L; ARTERIAL BLOOD O2 SATURATION 98.3 % (94-98)
[2017-03-22 07:08] LABS: BLOOD UREA NITROGEN 48 mg/dL (7-20); CALCIUM 8.1 mg/dL (8.4-10.2); CARBON DIOXIDE 12 mmol/L (22-30); CHLORIDE 102 mmol/L (98-107); CREATININE RESULT 2.14 mg/dL (0.52-1.25); GLUCOSE 135 mg/dL (75-110); POTASSIUM 4.8 mmol/L (3.6-5.0); SODIUM 138.5 mmol/L (137-145)
[2017-03-22 07:10] LABS: ABSOLUTE BASOPHILS # (AUTO) 0.1 10^3/uL (0.0-0.2); ABSOLUTE LYMPHOCYTES (AUTO) 0.9 10^3/uL (0.5-4.7); ABSOLUTE MONOCYTES (AUTO) 0.6 10^3/uL (0.1-1.4); ABSOLUTE NEUT (AUTO) 14.6 10^3/uL (1.7-8.2); BASOPHILS % (AUTO) 0.3 % (0-2); EOSINOPHILS % (AUTO) 0.1 % (0-6); HEMATOCRIT 16.5 % (37.9-51.0); HGB HCT DIFFERENCE -0.3; LYMPHOCYTES % (AUTO) 5.8 % (13-45); MEAN CORPUSCULAR HGB CONC 32.4 g/dL (32.0-36.0); MEAN CORPUSCULAR VOLUME 93 fl (80-97); MONOCYTES % (AUTO) 3.8 % (3-13); RED BLOOD COUNT 1.78 10^6/uL (4.35-5.55); RED CELL DISTRIBUTION WIDTH 14.9 % (11.5-14.0); WHITE BLOOD COUNT 16.2 10^3/uL (4.0-10.5)
[2017-03-22 07:15] LABS: HEMOGLOBIN 5.4 g/dL (13.5-17.0)
[2017-03-22] MEDS ORDERED: SODIUM BICARBONATE 8.4% INJ 50 MEQ/50 ML DISP.SYRIN IV ONE (07:15)
[2017-03-22 07:33] LABS: ANION GAP 25 (5-19)
[2017-03-22] MEDS: AMANTADINE HCL 100 MG CAPSULE PO SCH ×3 (07:40→18:33)
[2017-03-22] MEDS: ACETAMINOPHEN 100 ML IV SCH (07:40)
[2017-03-22] MEDS: CHLORTHALIDONE 25 MG TABLET PO SCH (07:40)
[2017-03-22] MEDS: LANSOPRAZOLE 30 MG TAB.RAP.DR PO SCH (07:40)
[2017-03-22] MEDS ORDERED: NORMAL SALINE 250 ML IV PRN ×2 (08:08)
[2017-03-22] MEDS ORDERED: NORMAL SALINE 1000 ML 1,000 ML IV PRN (08:47)
--- NOTE | 2017-03-22 08:54 | PDOC PROGRESS REPORT ---
Subjective Progress Note for:: 03/22/17 Reason For Visit: HIP FRACTURE 76-year-old white male with Parkinson's and now postop day 2 status post left hip arthroplasty for femoral neck fracture. The patient had a difficult night from a restlessness standpoint. He is gone into Huber acidosis and hematocrit is dropped to 16%. Physical Exam Vital Signs: Temp Pulse Resp BP Pulse Ox 36.3 C 77 18 132/97 H 94 03/22/17 07:34 03/22/17 07:34 03/22/17 06:53 03/22/17 07:34 03/22/17 07:34 Intake & Output 03/21/17 03/22/17 03/23/17 06:59 06:59 06:59 Intake Total 1816 1320 Output Total 1275 Balance 541 1320 Physical Exam: The patient is resting with frequent twitching movements. Son is in the room. Conversation was held with the son. General appearance: PRESENT: mild distress Head exam: PRESENT: normocephalic Respiratory exam: PRESENT: unlabored Cardiovascular exam: PRESENT: RRR Pulses: PRESENT: +1 pedal pulses bilateral Vascular exam: PRESENT: normal capillary refill GI/Abdominal exam: PRESENT: soft Rectal exam: PRESENT: deferred Extremities exam: PRESENT: other - Left hip dressing is clean dry and intact. Leg lengths are equal. Distal neurovascular examination is intact. Skin exam: PRESENT: dry, intact, warm. ABSENT: cyanosis, rash Results Laboratory Results: 03/22/17 06:35 03/22/17 06:35 03/22/17 03/22/17 03/22/17 04:10 04:10 06:35 WBC Cancelled RBC Cancelled Hgb Cancelled Hct Cancelled MCV Cancelled MCH Cancelled MCHC Cancelled RDW Cancelled Plt Count Cancelled Seg Neutrophils % Cancelled Lymphocytes % Cancelled Monocytes % Cancelled Eosinophils % Cancelled Basophils % Cancelled Absolute Neutrophils Cancelled Absolute Lymphocytes Cancelled Absolute Monocytes Cancelled Absolute Eosinophils Cancelled Absolute Basophils Cancelled Carbonic Acid HCO3/H2CO3 Ratio ABG pH ABG pCO2 ABG pO2 ABG HCO3 ABG O2 Saturation ABG Base Excess FiO2 Sodium 136.8 L Potassium 4.9 Chloride 102 Carbon Dioxide 9 L* Anion Gap 26 H BUN 45 H Creatinine 2.08 H Est GFR ( Amer) 38 L Est GFR (Non-Af Amer) 31 L Glucose 120 H Lactic Acid 9.6 H Calcium 8.5 03/22/17 03/22/17 03/22/17 06:35 06:35 06:40 WBC 16.2 H RBC 1.78 L Hgb 5.4 L D Hct 16.5 L MCV 93 MCH 30.0 MCHC 32.4 RDW 14.9 H Plt Count 325 Seg Neutrophils % 90.0 H Lymphocytes % 5.8 L Monocytes % 3.8 Eosinophils % 0.1 Basophils % 0.3 Absolute Neutrophils 14.6 H Absolute Lymphocytes 0.9 Absolute Monocytes 0.6 Absolute Eosinophils 0.0 Absolute Basophils 0.1 Carbonic Acid 0.59 L HCO3/H2CO3 Ratio 25:1 ABG pH 7.51 H ABG pCO2 19.5 L* ABG pO2 101.4 H ABG HCO3 15.2 L ABG O2 Saturation 98.3 H ABG Base Excess -7.4 FiO2 ROOM AIR Sodium 138.5 Potassium 4.8 Chloride 102 Carbon Dioxide 12 L Anion Gap 25 H BUN 48 H Creatinine 2.14 H Est GFR ( Amer) 36 L Est GFR (Non-Af Amer) 30 L Glucose 135 H Lactic Acid Calcium 8.1 L Impressions: Chest X-Ray 03/19/17 12:42 IMPRESSION: NO ACUTE RADIOGRAPHIC FINDING IN THE CHEST. Femur X-Ray 03/19/17 12:42 IMPRESSION: FRACTURE OF THE FEMORAL NECK. SEVERE DEGENERATIVE CHANGES IN THE HIP. Pelvis X-Ray 03/20/17 09:45 IMPRESSION: Left hip arthroplasty. Status: Imported from PACS Assessment & Plan - Diagnosis (1) Fracture of hip, left, closed Qualifiers: Encounter type: initial encounter Qualified Code(s): S72.002A - Fracture of unspecified part of neck of left femur, initial encounter for closed fracture Is this a current diagnosis for this admission?: Yes Plan: 76-year-old white male with Parkinson's who presented with a left femoral neck fracture and an hematocrit of 25%. He received 2 units packed red blood cells preoperatively. He has now had a dramatic drop in his hematocrit with minimal intraoperative blood loss and no blood loss in the postoperative dressing. Functional goals are questionable. The patient was probably limited to weightbearing as tolerated for transfers to a motorized chair preoperatively. It is unclear how much of an impediment his left hip arthritis was preoperatively in terms of him being able to ambulate. At this point I think the patient should be seen by physical therapy for at least weightbearing as tolerated transfers and potentially for a few steps weightbearing as tolerated with a walker. Clearly this is going to have to await clearance of his medical issues. - Time Time Spent with patient: 15-24 minutes Anticipated discharge: SNF Within: Other
[2017-03-22 10:05] LABS: ANION GAP 18 (5-19); BLOOD UREA NITROGEN 50 mg/dL (7-20); CALCIUM 8.2 mg/dL (8.4-10.2); CARBON DIOXIDE 18 mmol/L (22-30); CHLORIDE 103 mmol/L (98-107); CREATININE RESULT 1.85 mg/dL (0.52-1.25); GLUCOSE 115 mg/dL (75-110); POTASSIUM 4.2 mmol/L (3.6-5.0); SODIUM 138.6 mmol/L (137-145)
--- NOTE | 2017-03-22 10:20 | PDOC PROGRESS REPORT ---
Subjective Progress Note for:: 03/22/17 Subjective:: denies any pain Reason For Visit: HIP FRACTURE Physical Exam Vital Signs: Temp Pulse Resp BP Pulse Ox 97.3 F 77 18 132/97 H 94 03/22/17 07:34 03/22/17 07:34 03/22/17 06:53 03/22/17 07:34 03/22/17 07:34 Intake & Output 03/21/17 03/22/17 03/23/17 06:59 06:59 06:59 Intake Total 1816 1320 Output Total 1275 Balance 541 1320 General appearance: PRESENT: thin Eye exam: PRESENT: conjunctiva pink. ABSENT: scleral icterus Ear exam: PRESENT: normal external ear exam Mouth exam: PRESENT: dry mucosa Neck exam: ABSENT: JVD Respiratory exam: PRESENT: clear to auscultation bang. ABSENT: rales, rhonchi, wheezes Cardiovascular exam: PRESENT: RRR. ABSENT: diastolic murmur, rubs, systolic murmur GI/Abdominal exam: PRESENT: normal bowel sounds, soft. ABSENT: distended, guarding, mass, organolmegaly, rebound, tenderness Extremities exam: ABSENT: calf tenderness, clubbing, pedal edema Neurological exam: PRESENT: alert, awake, oriented to person, oriented to place , oriented to time, oriented to situation, CN II-XII grossly intact, other - Resting tremor consistent with Parkinson's disease.. ABSENT: motor sensory deficit Psychiatric exam: PRESENT: appropriate affect Skin exam: PRESENT: dry, intact, warm. ABSENT: cyanosis, rash Results Laboratory Results: 03/22/17 06:35 03/22/17 09:18 03/22/17 03/22/17 03/22/17 04:10 04:10 06:35 WBC Cancelled RBC Cancelled Hgb Cancelled Hct Cancelled MCV Cancelled MCH Cancelled MCHC Cancelled RDW Cancelled Plt Count Cancelled Seg Neutrophils % Cancelled Lymphocytes % Cancelled Monocytes % Cancelled Eosinophils % Cancelled Basophils % Cancelled Absolute Neutrophils Cancelled Absolute Lymphocytes Cancelled Absolute Monocytes Cancelled Absolute Eosinophils Cancelled Absolute Basophils Cancelled Carbonic Acid HCO3/H2CO3 Ratio ABG pH ABG pCO2 ABG pO2 ABG HCO3 ABG O2 Saturation ABG Base Excess FiO2 Sodium 136.8 L Potassium 4.9 Chloride 102 Carbon Dioxide 9 L* Anion Gap 26 H BUN 45 H Creatinine 2.08 H Est GFR ( Amer) 38 L Est GFR (Non-Af Amer) 31 L Glucose 120 H Lactic Acid 9.6 H Calcium 8.5 03/22/17 03/22/17 03/22/17 06:35 06:35 06:40 WBC 16.2 H RBC 1.78 L Hgb 5.4 L D Hct 16.5 L MCV 93 MCH 30.0 MCHC 32.4 RDW 14.9 H Plt Count 325 Seg Neutrophils % 90.0 H Lymphocytes % 5.8 L Monocytes % 3.8 Eosinophils % 0.1 Basophils % 0.3 Absolute Neutrophils 14.6 H Absolute Lymphocytes 0.9 Absolute Monocytes 0.6 Absolute Eosinophils 0.0 Absolute Basophils 0.1 Carbonic Acid 0.59 L HCO3/H2CO3 Ratio 25:1 ABG pH 7.51 H ABG pCO2 19.5 L* ABG pO2 101.4 H ABG HCO3 15.2 L ABG O2 Saturation 98.3 H ABG Base Excess -7.4 FiO2 ROOM AIR Sodium 138.5 Potassium 4.8 Chloride 102 Carbon Dioxide 12 L Anion Gap 25 H BUN 48 H Creatinine 2.14 H Est GFR ( Amer) 36 L Est GFR (Non-Af Amer) 30 L Glucose 135 H Lactic Acid Calcium 8.1 L 03/22/17 09:18 WBC RBC Hgb Hct MCV MCH MCHC RDW Plt Count Seg Neutrophils % Lymphocytes % Monocytes % Eosinophils % Basophils % Absolute Neutrophils Absolute Lymphocytes Absolute Monocytes Absolute Eosinophils Absolute Basophils Carbonic Acid HCO3/H2CO3 Ratio ABG pH ABG pCO2 ABG pO2 ABG HCO3 ABG O2 Saturation ABG Base Excess FiO2 Sodium 138.6 Potassium 4.2 Chloride 103 Carbon Dioxide 18 L Anion Gap 18 BUN 50 H Creatinine 1.85 H Est GFR ( Amer) 43 L Est GFR (Non-Af Amer) 36 L Glucose 115 H Lactic Acid Calcium 8.2 L Impressions: Chest X-Ray 03/19/17 12:42 IMPRESSION: NO ACUTE RADIOGRAPHIC FINDING IN THE CHEST. Femur X-Ray 03/19/17 12:42 IMPRESSION: FRACTURE OF THE FEMORAL NECK. SEVERE DEGENERATIVE CHANGES IN THE HIP. Pelvis X-Ray 03/20/17 09:45 IMPRESSION: Left hip arthroplasty. Assessment & Plan - Diagnosis (1) Anemia Is this a current diagnosis for this admission?: Yes Plan: We will give 3 units of packed red blood cells and to follow-up on CBC after the transfusion. No evidence for active bleeding at this time. (2) Fracture of hip, left, closed Qualifiers: Encounter type: initial encounter Qualified Code(s): S72.002A - Fracture of unspecified part of neck of left femur, initial encounter for closed fracture Is this a current diagnosis for this admission?: Yes Plan: He is status post hemiarthroplasty. He reports he is having no pain at this time. (3) Parkinsons disease Is this a current diagnosis for this admission?: Yes Plan: Will continue with his outpatient regimen. (4) Hypertension Is this a current diagnosis for this admission?: Yes (5) Hyperlipidemia Is this a current diagnosis for this admission?: Yes (6) Diabetes mellitus Is this a current diagnosis for this admission?: Yes Plan: We will cover with sliding scale insulin. (7) Peripheral neuropathy Is this a current diagnosis for this admission?: Yes (8) Right carotid bruit Is this a current diagnosis for this admission?: Yes Plan: Patient has no history previously of carotid bruit. Will need an outpatient workup for this carotid bruit. (9) DNR (do not resuscitate) Is this a current diagnosis for this admission?: Yes Plan: Discussed with the family and they all are in agreement with a DO NOT RESUSCITATE. - Time Time Spent with patient: 25-34 minutes - Inpatient Certification Medical Necessity: Need Close Monitoring Due to Risk of Patient Decompensation
[2017-03-22] MEDS: METOPROLOL TARTRATE 25 MG TABLET PO SCH (10:51)
[2017-03-22] MEDS: FENOFIBRATE NANOCRYSTALLIZED 48 MG TABLET PO SCH (10:51)
[2017-03-22] MEDS: PRENATAL VITAMIN W DHA CAPSULE PO SCH (10:51)
[2017-03-22] MEDS: FAMOTIDINE 20 MG TABLET PO SCH (10:52)
[2017-03-22] MEDS: SENNOSIDES/DOCUSATE 8.6-50 MG 1 EACH TABLET PO SCH ×2 (10:52→18:33)
[2017-03-22] MEDS: LOSARTAN POTASSIUM 50 MG TABLET PO SCH (10:52)
[2017-03-22] MEDS: ASPIRIN 81 MG TABLET, ENT COATED PO SCH (10:52)
[2017-03-22] MEDS: AMLODIPINE BESYLATE 5 MG TABLET PO SCH (10:53)
[2017-03-22] MEDS ORDERED: CARBIDOPA PO SCH (14:00)
[2017-03-22] MEDS ORDERED: LEVODOPA PO SCH (14:00)
[2017-03-22 15:36] LABS: ANION GAP 15 (5-19); BLOOD UREA NITROGEN 54 mg/dL (7-20); CALCIUM 7.4 mg/dL (8.4-10.2); CARBON DIOXIDE 18 mmol/L (22-30); CHLORIDE 105 mmol/L (98-107); CREATININE RESULT 1.82 mg/dL (0.52-1.25); GLUCOSE 147 mg/dL (75-110); POTASSIUM 4.3 mmol/L (3.6-5.0); SODIUM 137.8 mmol/L (137-145)
[2017-03-22] MEDS: MORPHINE SULFATE 10 MG/ML INJ IV PRN (15:57)
[2017-03-22] MEDS ORDERED: FUROSEMIDE INJ/PF 40 MG/4 ML SDV ONE (17:29)
[2017-03-22 18:32] LABS: HEMATOCRIT 21.1 % (37.9-51.0); HGB HCT DIFFERENCE -0.7; MEAN CORPUSCULAR HEMOGLOBIN 30.9 pg (27.0-33.4); MEAN CORPUSCULAR HGB CONC 32.4 g/dL (32.0-36.0); MEAN CORPUSCULAR VOLUME 96 fl (80-97); RED BLOOD COUNT 2.21 10^6/uL (4.35-5.55); RED CELL DISTRIBUTION WIDTH 15.3 % (11.5-14.0); WHITE BLOOD COUNT 17.3 10^3/uL (4.0-10.5)
[2017-03-22] MEDS: ROTIGOTINE 4 MG TOP SCH (18:33)
[2017-03-22 18:36] LABS: HEMOGLOBIN 6.8 g/dL (13.5-17.0)
[2017-03-22 18:43] LABS: BLOOD UREA NITROGEN 54 mg/dL (7-20); CALCIUM 7.9 mg/dL (8.4-10.2); CHLORIDE 105 mmol/L (98-107); CREATININE RESULT 2.64 mg/dL (0.52-1.25); GLUCOSE 131 mg/dL (75-110)
[2017-03-22 18:59] LABS: SODIUM 140.3 mmol/L (137-145)
[2017-03-22 19:01] LABS: ANION GAP 27 (5-19); POTASSIUM 5.7 mmol/L (3.6-5.0)
[2017-03-22 19:03] LABS: CARBON DIOXIDE 8 mmol/L (22-30)
[2017-03-22] MEDS ORDERED: DOPAMINE HCL/DEXTROSE 5%-WATER 800 MG/250 ML RTUINJ IV PRN (19:21)
[2017-03-22] MEDS ORDERED: FUROSEMIDE INJ/PF 40 MG/4 ML SDV IV ONE (19:30)
[2017-03-22 19:58] VITALS: BP 112/67
[2017-03-22] MEDS ORDERED: MORPHINE SULFATE 10 MG/ML INJ IV PRN (20:19)
--- NOTE | 2017-03-23 07:30 | Death Summary ---
Summary Date : 03/22/17 Time of :: 20:25 Autopsy: No Resuscitation Status: Comfort Measures Only - Final Diagnosis (1) Congestive heart failure Is this a current diagnosis for this admission?: Yes (2) Fracture of hip, left, closed Is this a current diagnosis for this admission?: Yes (3) Anemia Is this a current diagnosis for this admission?: Yes (4) Parkinsons disease Is this a current diagnosis for this admission?: Yes (5) Hypertension Is this a current diagnosis for this admission?: Yes (6) Hyperlipidemia Is this a current diagnosis for this admission?: Yes (7) Diabetes mellitus Is this a current diagnosis for this admission?: Yes (8) Peripheral neuropathy Is this a current diagnosis for this admission?: Yes (9) Right carotid bruit Is this a current diagnosis for this admission?: Yes (10) DNR (do not resuscitate) Is this a current diagnosis for this admission?: Yes Hospital Course:: 76-year-old gentleman who had severe Parkinson's disease and was only able to ambulate a minimal amount who presented after a fall with a hip fracture. The patient underwent surgical repair without difficulty. Postoperatively the patient developed a significant anemia with a hemoglobin down to 5. Patient was transfused 2 units of packed red blood cells and then developed congestive heart failure with respiratory failure. Patient was placed on a BiPAP and he continued to struggle. He was given Lasix with minimal improvement in the acute congestive heart failure. Patient was then made comfort care and at 2024 on March 22, 2017. Cause of #1 congestive heart failure. Contributing factors were anemia and hip fracture.
== END 2017-03-22 21:45 | disposition expired | DRG 469 ==
LOC: ER 12:37 → EH 14:00 → 5 20:55 → UNDODISIN 03-20 17:45 → 3W 03-22 07:27
PROVIDERS: ADMIT Internal Medicine; ATTEND Internal Medicine
PROC: 30233N1 Transfusion of Nonautologous Red Blood Cells into Peripheral Vein, Percutaneous Approach (ICD-10-PCS; 2017-03-19)
PROC: 30233N1 Transfusion of Nonautologous Red Blood Cells into Peripheral Vein, Percutaneous Approach (ICD-10-PCS; 2017-03-20)
PROC: 0SRB0JA Replacement of Left Hip Joint with Synthetic Substitute, Uncemented, Open Approach (ICD-10-PCS; principal; 2017-03-20 09:00)
PROC: 30233N1 Transfusion of Nonautologous Red Blood Cells into Peripheral Vein, Percutaneous Approach (ICD-10-PCS; 2017-03-22)
PROC: 5A09357 Assistance with Respiratory Ventilation, Less than 24 Consecutive Hours, Continuous Positive Airway Pressure (ICD-10-PCS; 2017-03-22)
DX: S72.002A Fracture of unspecified part of neck of left femur, initial encounter for closed fracture (principal); J96.00 Acute respiratory failure, unspecified whether with hypoxia or hypercapnia; I50.9 Heart failure, unspecified; Z66 Do not resuscitate; Z51.5 Encounter for palliative care; V00.831A Fall from motorized mobility scooter, initial encounter; Y93.9 Activity, unspecified; Y92.9 Unspecified place or not applicable; Y99.9 Unspecified external cause status; E78.5 Hyperlipidemia, unspecified; E11.42 Type 2 diabetes mellitus with diabetic polyneuropathy; M16.10 Unilateral primary osteoarthritis, unspecified hip; I73.9 Peripheral vascular disease, unspecified; G20 Parkinson's disease; Z79.84 Long term (current) use of oral hypoglycemic drugs; Z79.899 Other long term (current) drug therapy; Z88.0 Allergy status to penicillin; D64.9 Anemia, unspecified
CPT/HCPCS: 01214; 36415; 36430; 36600; 71010; 72170; 80048; 82803; 82962; 83605; 85025; 85027; 86850; 86900; 86901; 86920; 88305; 88311; 93005; 93010; 94660; 94799; 99285; C1713; C9290; J0131; J1170; J1940; J2250; J2270; J2370; J2704; J3370; J3490; J7030; J7060; P9016